=== PATIENT | female | born 1985 | race Caucasian/White ===

== ENCOUNTER 2023-01-05 18:12 | Emergency (ER) | payer OTHER, MEDICAID ==
[~2023-01-05] VITALS: Ht 167.6 cm; Wt 53.1 kg
[2023-01-05 18:15] VITALS: BP_SYST 107; PULSE 85; RESP 18; TEMP 98.3; O2SAT 98
[2023-01-05 18:56] LABS: BILIRUBIN,URINE NEGATIVE (NEGATIVE); BLOOD, URINE NEGATIVE (NEGATIVE); CLARITY/URINE CLEAR (CLEAR); COLOR,URINE YELLOW (YELLOW); GLUCOSE,URINE NEGATIVE (NEGATIVE); KETONES,URINE NEGATIVE (NEGATIVE); LEUKOCYTE ESTERASE ,URINE NEGATIVE (NEGATIVE); NITRITE, URINE NEGATIVE (NEGATIVE); PH,URINE 6.5 (5.0-8.0); PROTEIN URINE NEGATIVE (NEGATIVE); UROBILINOGEN,URINE 0.2 (0.2-1.0)
[2023-01-05 19:18] LABS: BASOPHILS % (AUTO) 0.6 % (0.0-2.0); EOSINOPHILS # (AUTO) 0.1 K/uL (0.0-0.4); HEMATOCRIT 38.1 % (36-48); HEMOGLOBIN 13.2 g/dL (12.0-16.0); LYMPHOCYTES # (AUTO) 2.5 K/uL (1.0-5.5); LYMPHOCYTES % (AUTO) 48.4 % (20.5-51.5); MEAN CORPUSCULAR HEMOGLOBIN 31 pg (27-31); MEAN CORPUSCULAR HGB CONC 35 % (32-36); MEAN CORPUSCULAR VOLUME 90 fL (79.0-98.0); MONOCYTES # (AUTO) 0.5 K/uL (0.0-1.0); MONOCYTES % (AUTO) 9.7 % (1.7-9.3); NEUTROPHILS # (AUTO) 2.1 K/uL (1.8-7.7); NEUTROPHILS % (AUTO) 39.3 % (40.0-70.0); PLATELET COUNT (AUTO) 183 K/uL (130-430); RED BLOOD CELL COUNT(AUTO) 4.23 MIL/uL (4.2-6.2); RED CELL DISTRIBUTION WIDTH 13.8 % (9.0-15.0); WHITE BLOOD COUNT (AUTO) 5.3 K/uL (4.8-10.8)
[2023-01-05] MEDS ORDERED: ONDANSETRON 4 MG ODT TAB PO ONE (20:15)
[2023-01-05] MEDS ORDERED: ONDA-8 TL (20:17)
[2023-01-05 21:45] VITALS: BP_SYST 111; PULSE 78; RESP 20; TEMP 98; O2SAT 98
== END 2023-01-05 20:20 | disposition home or self-care (01) ==
LOC: SED 18:12
DX: O02.1 Missed abortion (principal); Z3A.08 8 weeks gestation of pregnancy; Z79.899 Other long term (current) drug therapy
CPT/HCPCS: 99284; 76801; 84702; 85025; 36415; 76817; 81025; 81003; Q0162